=== PATIENT | female | born 1985 | race Caucasian/White ===

== ENCOUNTER 2020-07-08 20:42 | Emergency (ER) | payer BC ==
[2020-07-08 21:31] LABS: HEMOGLOBIN 14.5 gm/dl (12.3-15.3); RED BLOOD COUNT 4.64 M/UL (4.00-5.10)
[2020-07-08 22:04] LABS: BUN/CREATININE RATIO 11 (0-10)
[2020-07-08] MEDS ORDERED: MEDROL DOSEPAK 24 MG PO (23:02)
== END 2020-07-08 23:08 | disposition home or self-care (01) ==
LOC: ER1 20:42
PROVIDERS: Physician Assistant Medical
DX: R07.9 Chest pain, unspecified (principal); Z86.16 Personal history of COVID-19; R06.02 Shortness of breath; Z90.89 Acquired absence of other organs; F17.210 Nicotine dependence, cigarettes, uncomplicated
CPT/HCPCS: 71045; 80053; 84484; 85025; 85379; 93005; 99284